=== PATIENT | female | born 1950 ===

== ENCOUNTER 2020-10-14 06:17 | Day surgery (SDC) | payer OTHER ==
[~2020-10-14 06:17] MED LIST: COZAAR100 MG PO; FORTAMET500 MG PO; HORIZANT300 MG PO
== END 2020-10-14 14:35 | disposition home or self-care (01) ==
LOC: CIR.AMB 06:17
PROVIDERS: ATTEND Orthopaedic Surgery
DX: M75.121 Complete rotator cuff tear or rupture of right shoulder, not specified as traumatic (principal); Z20.828 Contact with and (suspected) exposure to other viral communicable diseases